=== PATIENT | female | born 1940 | race Caucasian/White ===

== ENCOUNTER 2021-06-24 21:39 | Inpatient (IN) | payer MEDICARE, MEDICAID ==
[~2021-06-24] VITALS: Ht 160 cm; Wt 73.5 kg
[2021-06-25] MEDS ORDERED: ATORVASTATIN CA40 MG PO (01:57)
[2021-06-25] MEDS ORDERED: CARDIZEM CD120 MG PO (01:57)
[2021-06-25] MEDS ORDERED: ARICEPT10 MG PO (01:58)
[2021-06-25] MEDS ORDERED: DRISDOL1250 MCG PO (01:59)
[2021-06-25] MEDS ORDERED: FAMOTIDINE20 MG PO (02:00)
[2021-06-25] MEDS ORDERED: LEVOTHYROXINE25 MC1 PO (02:01)
[2021-06-25] MEDS ORDERED: LEXAPRO5 MG PO (02:01)
[2021-06-25] MEDS ORDERED: MEGESTROL400 MG/11 PO (02:02)
[2021-06-25] MEDS ORDERED: MULTIPLE VITAM1 EACH PO (02:03)
[2021-06-25] MEDS ORDERED: DOCUSATE SODIU100 MG PO (02:06)
[2021-06-25] MEDS ORDERED: CARDIZEM 60MG T60 MG PO (02:06)
[2021-06-25] MEDS ORDERED: ELIQUIS 5 MG TAB5 MG PO (02:07)
[2021-06-25] MEDS ORDERED: NAMENDA10 MG PO (02:07)
[2021-06-25] MEDS ORDERED: LOPRESSOR50 MG PO (02:09)
[2021-06-25] MEDS ORDERED: QUETIAPINE FUMA25 MG PO (02:09)
[2021-06-25 03:45] LABS: HEMOGLOBIN 9.4 gm/dl (12.3-15.3); RED BLOOD COUNT 3.12 M/UL (4.00-5.10)
[2021-06-26 04:04] LABS: HEMOGLOBIN 8.5 gm/dl (12.3-15.3)
[2021-06-26 04:08] LABS: RED BLOOD COUNT 2.8 M/UL (4.00-5.10)
[2021-06-27 09:38] LABS: HEMOGLOBIN 9.4 gm/dl (12.3-15.3); WHITE BLOOD COUNT 8.6 K/UL (4.5-11.0)
[2021-06-27 09:42] LABS: RED BLOOD COUNT 3.13 M/UL (4.00-5.10)
[2021-06-28 08:25] LABS: HEMOGLOBIN 10.2 gm/dl (12.3-15.3); RED BLOOD COUNT 3.41 M/UL (4.00-5.10); WHITE BLOOD COUNT 6.8 K/UL (4.5-11.0)
[2021-06-29 07:06] LABS: RED BLOOD COUNT 3.29 M/UL (4.00-5.10); WHITE BLOOD COUNT 8.3 K/UL (4.5-11.0)
[2021-06-30 09:22] LABS: HEMOGLOBIN 9.9 gm/dl (12.3-15.3); RED BLOOD COUNT 3.32 M/UL (4.00-5.10); WHITE BLOOD COUNT 8.8 K/UL (4.5-11.0)
[2021-07-01 08:43] LABS: HEMOGLOBIN 9.1 gm/dl (12.3-15.3); RED BLOOD COUNT 2.99 M/UL (4.00-5.10); WHITE BLOOD COUNT 7.2 K/UL (4.5-11.0)
[2021-07-02 08:04] LABS: HEMOGLOBIN 9.4 gm/dl (12.3-15.3); RED BLOOD COUNT 3.17 M/UL (4.00-5.10); WHITE BLOOD COUNT 7.2 K/UL (4.5-11.0)
[2021-07-03 07:48] LABS: HEMOGLOBIN 7.5 gm/dl (12.3-15.3)
[2021-07-03 07:49] LABS: RED BLOOD COUNT 2.56 M/UL (4.00-5.10)
[2021-07-04 03:37] LABS: HEMOGLOBIN 8.9 gm/dl (12.3-15.3); WHITE BLOOD COUNT 6.6 K/UL (4.5-11.0)
[2021-07-04 03:41] LABS: RED BLOOD COUNT 2.99 M/UL (4.00-5.10)
--- NOTE | 2021-07-04 03:52 | NUR ---
WOUND CARE AND PERINEAL CARE DONE. PT TOLERATED WELL. NOTED TO HAVE SMALL ABRASION, BRUISE TO RIGHT UPPER THIGH. ALLYVEN PLACED OVER SITE FOR PROTECTION. OLD SKIN TEAR TO RIGHT FOREARM NOTED TO BE HEALED.
[2021-07-05 11:22] LABS: HEMOGLOBIN 8.7 gm/dl (12.3-15.3); RED BLOOD COUNT 2.89 M/UL (4.00-5.10); WHITE BLOOD COUNT 7.3 K/UL (4.5-11.0)
[2021-07-06] MEDS ORDERED: ELIQUIS 2.5 MG2.5 MG PO (12:00)
[2021-07-06] MEDS ORDERED: MAGIC MOUTHWASH PO (12:00)
[2021-07-06] MEDS ORDERED: LOPRESSOR 25 MG25 MG PO (12:00)
[2021-07-06] MEDS ORDERED: CALCIUM500 M1 PO (12:04)
[2021-07-06] MEDS ORDERED: ACETAMINOPHEN325 MG PO (12:04)
[2021-07-06] MEDS ORDERED: ASPIRIN81 MG PO (12:04)
== END 2021-07-06 18:00 | DRG 682 ==
LOC: MED SURG 4 21:39 → PROG CARE 23:54
PROVIDERS: Internal Medicine; Internal Medicine Nephrology; ADMIT Internal Medicine
DX: N17.0 Acute kidney failure with tubular necrosis (principal); E43 Unspecified severe protein-calorie malnutrition; R53.2 Functional quadriplegia; G93.41 Metabolic encephalopathy; I50.32 Chronic diastolic (congestive) heart failure; I13.0 Hypertensive heart and chronic kidney disease with heart failure and stage 1 through stage 4 chronic kidney disease, or unspecified chronic kidney disease; E87.0 Hyperosmolality and hypernatremia; E87.2 Acidosis; N39.0 Urinary tract infection, site not specified; B37.89 Other sites of candidiasis; R13.12 Dysphagia, oropharyngeal phase; N18.30 Chronic kidney disease, stage 3 unspecified; I25.10 Atherosclerotic heart disease of native coronary artery without angina pectoris; I48.0 Paroxysmal atrial fibrillation; E86.0 Dehydration; E78.5 Hyperlipidemia, unspecified; E03.9 Hypothyroidism, unspecified; Z66 Do not resuscitate; L89.152 Pressure ulcer of sacral region, stage 2; Z20.822 Contact with and (suspected) exposure to COVID-19; E87.6 Hypokalemia; E83.51 Hypocalcemia; D50.9 Iron deficiency anemia, unspecified; E16.2 Hypoglycemia, unspecified; G30.9 Alzheimer's disease, unspecified; F02.80 Dementia in other diseases classified elsewhere, unspecified severity, without behavioral disturbance, psychotic disturbance, mood disturbance, and anxiety; I35.0 Nonrheumatic aortic (valve) stenosis; M17.0 Bilateral primary osteoarthritis of knee; Z86.16 Personal history of COVID-19; Z95.1 Presence of aortocoronary bypass graft; Z82.49 Family history of ischemic heart disease and other diseases of the circulatory system
CPT/HCPCS: ECHO; 36415; 70450; 71045; 73070; 80048; 80053; 80069; 81001; 82436; 82550; 82553; 82570; 82607; 82652; 82746; 82803; 82962; 83540; 83550; 83605; 83735; 83880; 83970; 84100; 84133; 84156; 84300; 84439; 84443; 84484; 85025; 85027; 85610; 86140; 87086; 93005; 93306; J0636; J0696; J1160; J1756; J3475; J7030; J7070; J7120; P9047